=== PATIENT | male | born 1955 | race Caucasian/White ===

== ENCOUNTER 2017-12-15 06:48 | Day surgery (SDC) | payer OTHER, BC ==
[2017-12-14 10:03] VITALS: BMI 36.1
--- NOTE | 2017-12-15 13:37 | ECHO ---
TRANSESOPHAGEAL ECHOCARDIOGRAM: DATE OF SERVICE: 12/15/17 PREPROCEDURE DIAGNOSIS: Mitral valve prolapse. DETAILS: The anesthesia department provided anesthesia for the patient. Please see their notes for details. After adequate sedation was achieved, the transesophageal probe was inserted into the patient's mouth and into the esophagus with no issues. Multiplanar views were then obtained. FINDINGS: Left ventricle is normal size with normal systolic function. Ejection fraction estimated at 55-60%. Left atrium mildly dilated. Right atrium is normal size. Right ventricle is normal size with normal systolic function. Aortic root is normal size. No aneurysmal dilatations or dissections. Interatrial septum appears to be intact by color Doppler. Aortic valve has three cusps. No stenosis or regurgitation. Mitral valve has mild mitral valve prolapse of the posterior mitral leaflet. There is mild to moderat e mitral regurgitation with anteriorly directed jet. No stenosis. Tricuspid valve is structurally normal. There is mild TR. Pulmonary valve is structurally normal. Left atrial appendage is widely patent with no evidence of mass or thrombus. Thoracic aorta has grade III/V atherosclerotic disease. CONCLUSIONS: 1. Normal systolic function, EF estimated 55-60%. 2. Mild left atrial enlargement. 3. Mild TR. 4. Mild mitral valve prolapse of the posterior mitral leaflet with mild to moderate mitral regurgita tion. 5. Grade III/V atherosclerotic disease of the thoracic aorta.
[2017-12-15] MEDS ORDERED: PROPOFOL 200 MG/20 ML VIAL ONE (13:42)
[2017-12-15] MEDS ORDERED: Lidocaine 1% PF 5 ML VIAL ONE (13:42)
== END 2017-12-15 10:16 | disposition home or self-care (01) ==
LOC: CCL 06:48
PROVIDERS: ATTEND Internal Medicine Cardiovascular Disease
PROC: B24BZZ4 Ultrasonography of Heart with Aorta, Transesophageal (ICD-10-PCS; principal; 2017-12-15)
DX: I34.1 Nonrheumatic mitral (valve) prolapse (principal); I34.0 Nonrheumatic mitral (valve) insufficiency; I70.0 Atherosclerosis of aorta; E78.5 Hyperlipidemia, unspecified; I10 Essential (primary) hypertension; K21.9 Gastro-esophageal reflux disease without esophagitis; M10.9 Gout, unspecified; F17.210 Nicotine dependence, cigarettes, uncomplicated; Z88.8 Allergy status to other drugs, medicaments and biological substances; Z79.82 Long term (current) use of aspirin; Z79.899 Other long term (current) drug therapy
CPT/HCPCS: 93312

== ENCOUNTER 2018-05-10 12:27 | Outpatient (CLI) | payer OTHER, BC ==
[2018-05-10 13:12] LABS: Estimated GFR-MDRD - POC Greater than 90
--- NOTE | 2018-05-10 16:18 | CT ---
PRE AND POST CONTRAST ENHANCED CT IMAGES OF THE ABDOMEN AND PELVIS: History: Hematuria for two months. Technique: Pre and post contrast enhanced CT images of the abdomen and pelvis obtained. FINDINGS: Images demonstrate the lung bases to be unremarkable. No evidence of free intraperitoneal air is seen. The liver and spleen are unremarkable. The gallbladder is within normal limits. The pancreas is unrem arkable. Adrenal glands are unremarkable. The kidneys demonstrate no evidence of masses or lesions. No evidenc e of renal calculi seen. Atherosclerotic calcifications are seen in the abdominal aorta. No evidence of periaortic lymphadenopathy is seen. A normal appendix is seen. No dilated loops of small bowel is seen. Descending colonic diverticulosis is present without evidence of diverticulitis. The gastric antrum d emonstrates an area of thickening seen on all three phases of the CT including pre contrast, early ve nous, and late venous phases. This may represent gastric antral pathology. Correlate with direct visu alization. The ureters are unremarkable. The abdominal aorta and iliac arteries demonstrate extensive calcificat ions. The urinary bladder demonstrates a subtle area of asymmetric mucosal thickening along the posterior a spect of the bladder wall. This may represent a mucosal based lesion. Correlate with direct visualiza tion. IMPRESSION: 1. Possible posterior left bladder area of mucosal thickening. 2. Area of increased density in the gastric antrum, correlate with direct visualization. POS: KASSY
== END 2018-05-10 12:28 | disposition home or self-care (01) ==
LOC: BICCT 12:27
PROVIDERS: ATTEND Urology
DX: R31.9 Hematuria, unspecified (principal)
CPT/HCPCS: 74178; 82565

== ENCOUNTER 2018-09-06 10:28 | Day surgery (SDC) | payer OTHER ==
[2018-09-05 08:49] VITALS: BMI 36.9
[~2018-09-06 10:28] MED LIST: Fentanyl 100 MCG/2 ML VIAL ONE; Midazolam HCl 2 mg/2 ml Vial ONE
[2018-09-06] MEDS ORDERED: Fluorouracil 100 MG, Enoxaparin Sodium 25 MG, EPINEPHrine 0.3 MG in Ophthalmic Irrigati... IVPB SCH (10:40)
[2018-09-06] MEDS ORDERED: Phenylephrine 2.5% Ophth Soln 5 ML BOT ONE (10:40)
[2018-09-06] MEDS ORDERED: Cyclopentolate 1% Opth Drop 2 ML BOT ONE (10:40)
[2018-09-06] MEDS ORDERED: Famotidine/PF 20 mg/2ml Vial ONE (11:39)
[2018-09-06] MEDS ORDERED: PROVENTIL INHALER 6.7 G (200 INHALATIONS) ONE (15:58)
[2018-09-06] MEDS ORDERED: Maxitrol 0.1% Opth Oint 3.5 GM TUBE ONE (15:58)
[2018-09-06] MEDS ORDERED: Lidocaine 4% PF 5 ML AMP ONE (15:58)
[2018-09-06] MEDS ORDERED: Lidocaine 1% PF 5 ML VIAL ONE ×2 (15:58)
[2018-09-06] MEDS ORDERED: Triamcinolone 40 MG/ML VIAL ONE (15:58)
[2018-09-06] MEDS ORDERED: Bupivacaine 0.75% 10 ML AMP ONE (15:58)
[2018-09-06] MEDS ORDERED: PHENYLEPHRINE-NS 100 MCG/ML 10 ML SYRINGE ONE (15:58)
[2018-09-06] MEDS ORDERED: ePHEDrine 50 MG/ML VIAL ONE (15:58)
[2018-09-06] MEDS ORDERED: CEFAZOLIN 1 GM VIAL ONE (15:58)
[2018-09-06] MEDS ORDERED: Atropine Sulfate 1% Ophth Ointment 3.5 gm Tube ONE (15:58)
[2018-09-06] MEDS ORDERED: Glycopyrrolate 0.2 MG/ML 5 ML SYRINGE ONE (15:58)
[2018-09-06] MEDS ORDERED: Ondansetron PF 4 MG/2 ML Vial ONE (15:58)
[2018-09-06] MEDS ORDERED: PROPOFOL 200 MG/20 ML VIAL ONE (15:58)
--- NOTE | 2018-09-06 21:39 | OP ---
DATE OF PROCEDURE: 09/06/2018 PREOPERATIVE DIAGNOSIS: Rhegmatogenous retinal detachment, right eye. POSTOPERATIVE DIAGNOSIS: Rhegmatogenous retinal detachment, right eye. PROCEDURE PERFORMED: Pars plana vitrectomy, complex retinal detachment, right eye. ANESTHESIA: General endotracheal anesthesia. DESCRIPTION OF PROCEDURE: The patient was identified in the preoperative holding area. Appropriate informed consent for the planned surgical procedure on the right eye had been obtained. The patient was transported to the operative suite, where general endotracheal anesthesia was initiated. A retrobulbar block was placed. The patient was prepped and draped in usual sterile manner for ophthalmic surgery on the right eye. Lid speculum placed in the right eye. A 25-gauge trocar was placed through the conjunctiva and sclera superotemporally, inferotemporally, and supranasally. Infusion line was placed inferotemporally. Light pipe vitreous cutter was inserted into the eye. Core vitrectomy was performed. Attention was turned to the inferior temporal retinal break where there was a fibrotic scar with vitreous traction and a retinal break. A 360 scleral buckle was placed to the #42 band and 3083 sleeve. Buckle was ligated end-to-end in the supratemporal quadrant and fixated to the eye with sutures in the oblique quadrants. Posterior drained retinotomy was created. Complete air-fluid exchange was performed with 10 minutes being left for fluid to drain posteriorly. A 360 laser was placed on the eye with special attention to the inferior temporal break; silicone oil was infused into the eye and sclerotomy was sutured closed. Retrobulbar Kenalog and retrobulbar Ancef was placed. Conjunctiva was closed with 6-0 plain gut suture. Atropine antibiotic ointment was placed and the eye was patched and shielded. The patient was taken to recovery unit in good condition, having suffered no immediate perioperative complications. The patient was advised to keep the patch and shield on, left side down. Followup in the morning with Dr. Odonnell. Job ID: [id number]
== END 2018-09-06 14:59 | disposition home or self-care (01) ==
LOC: SDC 10:28
PROVIDERS: ATTEND Ophthalmology Retina Specialist
PROC: 08T43ZZ Resection of Right Vitreous, Percutaneous Approach (ICD-10-PCS; principal; 2018-09-06)
DX: H33.011 Retinal detachment with single break, right eye (principal); K21.9 Gastro-esophageal reflux disease without esophagitis; M10.9 Gout, unspecified; F17.210 Nicotine dependence, cigarettes, uncomplicated; E78.5 Hyperlipidemia, unspecified; I10 Essential (primary) hypertension; Z79.82 Long term (current) use of aspirin; Z79.899 Other long term (current) drug therapy; Z88.8 Allergy status to other drugs, medicaments and biological substances
CPT/HCPCS: C1814; J0171; J0690; J1650; J2001; J2250; J2405; J2704; J3010; J3301; J3490; J9190; S0028

== ENCOUNTER 2018-12-20 08:30 | Day surgery (SDC) | payer OTHER ==
[2018-12-19 09:18] VITALS: BMI 34.0
[~2018-12-20 08:30] MED LIST changes: +Cyclopentolate 1% Opth Drop 2 ML BOT R EYE SCH; -Fentanyl 100 MCG/2 ML VIAL ONE; +Fluorouracil 100 MG, Enoxaparin Sodium 25 MG, EPINEPHrine 0.3 MG in Ophthalmic Irrigati... IRR SCH; -Midazolam HCl 2 mg/2 ml Vial ONE; +Phenylephrine 2.5% Ophth Soln 5 ML BOT R EYE SCH
[2018-12-20] MEDS ORDERED: Phenylephrine 2.5% Ophth Soln 5 ML BOT ONE (09:47)
[2018-12-20] MEDS ORDERED: Cyclopentolate 1% Opth Drop 2 ML BOT ONE (09:47)
[2018-12-20] MEDS ORDERED: PROPOFOL 20 ML ONE (10:26)
--- NOTE | 2018-12-20 19:09 | OP ---
DATE OF PROCEDURE: 12/20/2018 PREOPERATIVE DIAGNOSIS: Vitreous opacification, epiretinal membrane, right eye. POSTOPERATIVE DIAGNOSIS: Vitreous opacification, epiretinal membrane, right eye. PROCEDURE PERFORMED: Pars plana vitrectomy with membrane peel, right eye. ANESTHESIA: Local with monitored anesthesia care. DESCRIPTION OF PROCEDURE: The patient was identified in the preoperative holding area. Appropriate informed consent for the planned surgical procedure on the right eye was obtained. The patient was transported to the operative suite, where appropriate cardiopulmonary monitoring was established. Local anesthesia was obtained using retrobulbar modified Van Lint lid block using 50:50 mixture of 4% lidocaine and 0.75% bupivacaine. The patient was prepped and draped in usual sterile manner for ophthalmic surgery on the right eye. Lid speculum was placed in the right eye. A 25-gauge trocar was placed through the conjunctiva and sclera superotemporally, inferotemporally, and supranasally. 20-gauge sclerotomy was created superotemporally and viscous fluid removal device was inserted to the eye and silicone oil was removed. Attention was turned to the posterior pole. Epiretinal membrane inferior to the nerve was identified. This was elevated using membrane pick and peeled across the macula using end gripping forceps. Peripheral retina looks detached. No holes, breaks, or tears. Supratemporal sclerotomy and all other sclerotomies were suture closed. Retrobulbar Kenalog and subconjunctival Ancef were placed. Antibiotic ointment was placed. The eye was patched and shielded. The patient was taken to the postoperative recovery unit in good condition, having suffered no immediate perioperative complications. The patient was instructed to keep patch and shield on, avoid lifting or bending. Followup appointment with Dr. Odonnell. Job ID: [id number]
== END 2018-12-20 12:20 | disposition home or self-care (01) ==
LOC: SDC 08:30
PROVIDERS: ATTEND Ophthalmology Retina Specialist
PROC: 08NE3ZZ Release Right Retina, Percutaneous Approach (ICD-10-PCS; principal; 2018-12-20)
PROC: 08T43ZZ Resection of Right Vitreous, Percutaneous Approach (ICD-10-PCS; principal; 2018-12-20)
DX: H35.371 Puckering of macula, right eye (principal); H43.391 Other vitreous opacities, right eye; Z88.8 Allergy status to other drugs, medicaments and biological substances
CPT/HCPCS: J0171; J1650; J2704; J9190

== ENCOUNTER → 2019-03-28 | Day surgery (SDC) | payer OTHER ==
[2019-03-27 12:02] VITALS: BMI 33.6
[~2019-03-28] MED LIST changes: -Cyclopentolate 1% Opth Drop 2 ML BOT R EYE SCH; -Fluorouracil 100 MG, Enoxaparin Sodium 25 MG, EPINEPHrine 0.3 MG in Ophthalmic Irrigati... IRR SCH; +PROPOFOL 20 ML ONE; -Phenylephrine 2.5% Ophth Soln 5 ML BOT R EYE SCH
[2019-03-28 06:30] LABS: #Basophils 0.1 thou/uL (0.0-0.2); #Eosinphils 0.3 thou/uL (0.0-0.7); #Lymphocytes 2.1 thou/uL (1.20-3.40); #Monocytes 0.6 thou/uL (0.11-0.59); #Neutrophils 5.3 thou/uL (1.40-6.50); %Basophils 0.7 % (0.0-1.0); %Lymphocytes 24.7 % (21.0-51.0); %Monocytes 6.6 % (0.0-10.0); %Neutrophils 63.9 % (42.0-75.0); Hemoglobin 15.6 g/dL (14.0-18.0); Mean Corpuscular HGB CONC 33.7 g/dL (32.0-36.0); Mean Corpuscular Hemoglobin 32.6 pg (27.0-31.0); Mean Corpuscular Volume 96.8 fL (78.0-98.0); Mean Platelet Volume 8.3 fL (7.4-10.4); Platelet Count 148 thou/uL (130-400); RBC Distribution Width 12.7 % (11.5-14.5); White Blood Cell (WBC) Count 8.4 thou/uL (4.8-10.8)
[2019-03-28 06:54] LABS: ALT (SGPT) 15 U/L (8-55); AST (SGOT) 19 U/L (5-34); Albumin 4.6 g/dL (3.4-4.8); Alkaline Phosphatase 76 U/L (40-150); Anion Gap 11 mmol/L (10-20); BUN (Urea Nitrogen) 20 mg/dL (8.4-25.7); Bilirubin, Total 0.7 mg/dL (0.2-1.2); Calc. Creatinine Clearance 130 mL/min (70-130); Calcium 9.8 mg/dL (7.8-10.44); Carbon Dioxide 24 mmol/L (23-31); Cardiac Risk 4.6 (Less than 4.5); Chloride 107 mmol/L (98-107); Cholesterol 167 mg/dl (< 200 Desired); Estimated GFR-MDRD 90; Globulin 2.4 g/dL (2.4-3.5); Glucose 104 mg/dL (80-115); HDL Cholesterol 36 mg/dL (>60 Neg Risk); LDL Cholesterol, Calculated 100 mg/dL; Potassium 3.9 mmol/L (3.5-5.1); Sodium 138 mmol/L (136-145); Triglycerides 155 mg/dL (Less than 150)
--- NOTE | 2019-03-28 19:14 | ECHO ---
DATE OF SERVICE: 03/28/19 PREPROCEDURE DIAGNOSIS: MVP and MR. The Anesthesiology department provided with sedation for the patient. Please see their notes for det ails. After adequate sedation was achieved, transesophageal probe was inserted into the mouth and into the esophagus. Multiplanar views were obtained. Left ventricle is normal size, normal wall thickness. Systolic function appears to be normal. Estima mia EF at 60%. Left atrium is mildly dilated. Left atrial appendage is large with normal velocities. No mass or thrombus. Right atrium is normal sized. The interatrial septum appears to be intact by color Doppler and agitated saline study. The right ventricle is normal size with normal systolic function. The aortic root is sclerotic but opens well. No stenosis or regurgitation. Mitral valve has the P3 segment severely prolapsing into the left atrium with severe mitral regurgita tion with Coanda effect. Tricuspid valve is structurally normal. There is mild TR. No stenosis. Pulmonary valve is structurally normal. No stenosis or regurgitation. Grade II/V atherosclerotic disease of the thoracic aorta. CONCLUSIONS: 1. Normal systolic function, EF at 60%. 2. Aortic valve sclerosis. 3. Mild left atrial enlargement. 4. Negative agitated saline study for interatrial shunt. 5. Mild TR. 6. Mitral valve prolapse of the P3 segment of the posterior mitral valve leaflet with severe mitral regurgitation with Coanda effect. Repair versus replacement is recommended.
== END ==
LOC: CCL 05:50
PROVIDERS: ATTEND Internal Medicine Cardiovascular Disease
PROC: B24BZZ4 Ultrasonography of Heart with Aorta, Transesophageal (ICD-10-PCS; principal; 2019-03-28)
DX: I08.2 Rheumatic disorders of both aortic and tricuspid valves (principal); F17.210 Nicotine dependence, cigarettes, uncomplicated; E66.9 Obesity, unspecified; Z68.33 Body mass index [BMI] 33.0-33.9, adult; Z79.82 Long term (current) use of aspirin; Z79.899 Other long term (current) drug therapy; Z88.8 Allergy status to other drugs, medicaments and biological substances
CPT/HCPCS: 80053; 80061; 85025; 93312; J2704

== ENCOUNTER 2019-04-15 09:56 | Outpatient (CLI) | payer OTHER ==
--- NOTE | 2019-04-15 11:04 | CT ---
EXAM: CT Chest WO Con PROVIDED CLINICAL HISTORY: Mitral valve insufficiency COMPARISON: None FINDINGS: Vascular calcification is noted including coronary calcium. Coronary stent material is also noted. Th e heart, pericardium and great vessels are suboptimally evaluated in the absence of IV contrast material. No evidence for thoracic lymph node enlargement with limitations due to lack of IV contrast. The lungs are free of significant opacity. The airway appears patent and of normal caliber. The osseous structures demonstrate no concerning lytic or blastic lesions. Deformity of the right lat eral seventh rib and associated rounded lucency presumably reflect sequela of prior, healed fracture. The visualized portions of the upper abdomen demonstrate no evidence for an acute process. IMPRESSION: No evidence for an acute process with limitations as above. Chronic findings as above.
== END 2019-04-15 09:57 | disposition home or self-care (01) ==
LOC: BICCT 09:56
PROVIDERS: ATTEND Internal Medicine Cardiovascular Disease
DX: I34.0 Nonrheumatic mitral (valve) insufficiency (principal)
CPT/HCPCS: 71250

== ENCOUNTER 2019-06-06 08:51 | Observation (INO) | payer OTHER ==
[2019-06-06] MEDS ORDERED: Nitroglycerin 0.4 MG TAB 1 EACH ONE (09:54)
[2019-06-06] MEDS ORDERED: Acetaminophen 500 MG TAB ONE (09:56)
[2019-06-06 10:25] LABS: CKMB 3.1 ng/mL (0-6.6)
[2019-06-06 10:55] VITALS: BMI 35.4
[2019-06-06] MEDS ORDERED: HYDROcodone/Acetaminophen 5/325 mg Tablet PO PRN ×2 (11:04)
[2019-06-06] MEDS ORDERED: Ondansetron ODT 4 MG TAB PO PRN (11:05)
[2019-06-06] MEDS ORDERED: Acetaminophen 325 MG TAB PO PRN (11:05)
[2019-06-06] MEDS ORDERED: Ondansetron PF 4 MG/2 ML Vial IVP PRN (11:05)
[2019-06-06 13:12] LABS: Troponin I 0.095 ng/mL (< 0.028)
--- NOTE | 2019-06-06 18:07 | CON ---
DATE OF CONSULTATION: 06/06/2019 REASON FOR CONSULTATION: Chest pain. PRIMARY HARDSCAPE FOREMAN: Lb Castro MD. HISTORY OF PRESENT ILLNESS: Mr. Cool is a pleasant 64-year-old white gentleman, who comes to the hospital for chest pain. He had a mitral valve repair with minimally invasive approach in [place] a few weeks back. He was doing well. I saw him in the office last week, he was doing very well with no major discomfort. He states that he woke up this morning at 4 a.m. and was having upper chest discomfort, which he has never had in the past. It just kept getting worse and an hour later, he decided to wake up his , who brought him to the ER. He has been evaluated with a CT of the chest with contrast and everything has been stable with no major issue. Currently, he is pain free. He states that by the time he was getting in the ER, the pain was already abating and he received a dose of morphine, which completely made the pain go away and has not returned since. On my evaluation, he is pain free. PAST MEDICAL HISTORY: 1. Mitral valve prolapse, status post mitral valve repair. 2. Hypertension. 3. Hyperlipidemia. 4. Mild coronary artery disease on pre-surgical catheterization with a 40% LAD lesion. SURGICAL HISTORY: 1. Cataract surgery in earlier this year. 2. Detached retina surgery in the past. 3. Mitral valve repair just a month ago. FAMILY HISTORY: Noncontributory. REVIEW OF SYSTEMS: A 12-point review of systems was done and was all negative unless stated in the history of present illness. OUTPATIENT MEDICATIONS: Include; 1. Melatonin. 2. Lisinopril 2.5 mg a day. 3. Eliquis 2.5 mg b.i.d. 4. Allopurinol one tablet a day. 5. Vitamin D3. 6. Aspirin 81 mg a day. 7. Vitamin B complex. ALLERGIES: INTOLERANT TO STATINS. PHYSICAL EXAMINATION: VITAL SIGNS: Temperature 98.8, pulse 99, respiratory rate 20, saturating 94% on room air, blood pressure 117/63. GENERAL: Awake, alert, and oriented x3. No distress. HEENT: Normocephalic and atraumatic. NECK: Supple. LUNGS: Clear. CARDIOVASCULAR: S1 and S2. No S3 or S4. There is a grade 2/6 holosystolic murmur at the apex, unchanged. ABDOMEN: Soft. Positive bowel sounds. EXTREMITIES: No edema. SKIN: Warm and dry. LABORATORY DATA: Laboratory work was reviewed. CK-MB was normal. Troponin was in the indeterminate range of 0.07 and a repeat at 0.09. White count of 11, hemoglobin of 12, hematocrit 38, and platelet count 210. Chemistries were unremarkable. BNP was 264. CT of the chest showed no evidence of pulmonary embolism, no pneumothorax. There is an 11 mm peripheral right middle lobe lung nodule versus scar. ASSESSMENT: 1. Chest pain. Atypical. 2. Recent mitral valve repair with a minimally invasive approach. PLAN: So far, he is ruled out for an acute coronary syndrome. He has mild coronary artery disease and his troponins are not elevated. His EKG is also unchanged. We will plan on doing an echocardiogram. If this is unremarkable and the valve looks normal functioning, we will plan on sending him home if his pain does not recur. Thank you for letting us participate in the care of your patient. We will follow. Job ID: [id number]
[2019-06-06] MEDS ORDERED: Nitroglycerin 0.4 MG TAB (25 Tab Bottle) SL PRN (19:00)
[2019-06-06] MEDS ORDERED: Morphine 10 MG/ML VIAL SLOW IVP PRN (19:01)
--- NOTE | 2019-06-06 19:35 | RAD ---
EXAM: Chest 2 views: HISTORY: Chest pain mitral valve replacement COMPARISON: 06/06/2019 FINDINGS: Implantable device overlies the mid anterior chest. Evidence for mitral valve replacement. Scattered linear parenchymal changes are noted in the right midlung zone and both infrahilar regions having more the appearance of some subsegmental atelectasis. Heart size:Upper range of normal Lungs:No confluent pneumonia. Atherosclerotic changes of the aorta. No confluent pneumonia, overt edema, pleural effusion, pneumothorax, or other significant acute proce ss. IMPRESSION: Stable bilateral linear parenchymal changes from 06/06/2019. Atherosclerosis of the aorta. No new process.
[2019-06-06] MEDS: Melatonin 3 MG TAB PO SCH (21:20)
[2019-06-06] MEDS: Apixaban 2.5 MG TAB PO SCH (21:20)
--- NOTE | 2019-06-07 01:48 | HP ---
CHIEF COMPLAINT ON ADMISSION: Chest pain. HISTORY OF PRESENT ILLNESS: The patient is a 64-year-old male, who awoke suddenly about 3 a.m. after coming back from the bathroom to have severe substernal intense chest pain. It did not go away. After several minutes, he told his , who brought him to the emergency room in [place]. There, they gave him some aspirin and some morphine. They did not try any nitroglycerin. The patient describes the pain as substernal, very intense fills the whole top part of his chest like a sharp pressure, was not short-winded or diaphoretic until after he gotten his morphine. He did not have radiation of pain, but after the pain was relieved, he had soreness in his right shoulder blade area. The pain did not cause him to be diaphoretic or nauseated. He had his mitral valve replaced at [facility] in [place] by Dr. Winn about one month ago. There have been no complications since. He still has residual bruising from that surgery. His other risk factors for coronary artery disease include his history of smoking, his history of alcohol abuse, his history of coronary artery disease and congestive heart failure, his history of hyperlipidemia and hypertension. The patient is admitted because one of his troponins are elevated. He has seen Dr. Castro in the past and further workup is anticipated. PAST MEDICAL HISTORY: As mentioned above, significant for, 1. Mitral valve replacement. 2. Coronary artery disease. 3. Congestive heart failure. 4. Hyperlipidemia. 5. Hypertension. 6. Tobacco abuse. 7. Alcohol abuse. 8. Chronic insomnia. 9. Hyperuricemia. PAST SURGICAL HISTORY: Includes most recently mitral valve replacement at [facility] in [place]. He has also had right shoulder surgery, left shoulder surgery, spinal surgery in the lumbar area. He has had arthroscopy to his knees and a hernia repair. He has no previous psychiatric history. SOCIAL HISTORY: As mentioned previously, he is . Previous smoker, quit smoking a year ago and has recently tried to quit drinking in April, but admits to having a pint of bourbon the night prior to coming to the hospital. The day prior, he had a fried catfish as well. ALLERGIES: TO STATINS. CURRENT MEDICATIONS: Include, 1. Aspirin 81 mg daily. 2. Eliquis 2.5 mg daily. 3. Lisinopril 2.5 mg a day. 4. Potassium chloride 20 mEq a day. 5. Bumex 0.5 mg daily. 6. He also takes melatonin at bedtime. 7. Allopurinol 100 mg daily. REVIEW OF SYSTEMS: For this hospitalization, CONSTITUTIONAL: Denies fever, chills, or malaise. HEENT: Denies drainage or sores in ears, eyes, nose, or throat. CHEST: Denies coughing or dyspnea. CARDIOVASCULAR: He is here for chest pain, but denies palpitations. GI: Denies nausea, vomiting, or diarrhea. : Denies dysuria or blood in urine or stool. MUSCULOSKELETAL: Denies any significantly new aches or pains in any major muscles or joints. SKIN: No new rashes or lesions. NEUROLOGIC: Denies headaches, seizures, or trouble with mentation. ENDOCRINE: Denies any new areas of edema or hyperthermia. HEMOLYTIC/LYMPH: Denies any new bruising or swelling. PSYCHIATRIC: Denies any depression, trouble with mentation, or hallucinations. PHYSICAL EXAMINATION: At the time of admission, VITAL SIGNS: Blood pressure is 136/84, pulse 97, respirations 18, temperature 98.1. Pain scale 3/10 substernal. Room air O2 saturation 97%. GENERAL: This is an obese male, alert, oriented, cooperative. HEENT: Normocephalic, atraumatic. Pupils are equal, round, and reactive to light. Extraocular muscles are intact. TMs, nares, and pharynx are clear. NECK: Supple. Trachea midline. No mass. CHEST: Clear to auscultation. Nontender to palpation. HEART: Regular rate and rhythm without audible murmur. ABDOMEN: Obese without organomegaly and nontender. No appreciable mass. : Deferred. EXTREMITIES: Without clubbing, cyanosis, or edema. Normal range of motion present. Symmetric muscular tone development in upper and lower extremities is noted. SKIN: Shows postop changes along the chest wall with diffuse bruising and well healing incisions. NEUROLOGICAL: Cranial nerves are intact. Gait and cerebellar function untested. Sensory exam is intact. Mental status is clear, nonfocal. LABORATORY DATA: Lab work on admission shows WBCs at 11.8, hemoglobin 12.6, hematocrit 38, and platelets at 210. Sodium is 142, potassium 4.1, chloride 107, CO2 24, BUN 12, creatinine 0.6 with a GFR greater than 90, glucose at 104. Calcium at 9.0. Liver functions unremarkable. Troponin I 0.95. BNP is at 264. There is no chest x-ray. ASSESSMENT: 1. Chest pain. 2. Status post mitral valve replacement. 3. Multiple risk factors for coronary artery disease. PLAN: Plan will be to complete the cardiac work rule out. Dr. Castro has been asked to see the patient in consultation and in fact is already done so. An echocardiogram is planned. Should these prove negative prior to discharge, we will probably do a sonogram of his gallbladder and we will monitor his vital signs and serially re-evaluate him. Job ID: [id number]
[2019-06-07 05:22] LABS: Hemoglobin A1c 5.3 % (4.0-6.0)
[2019-06-07] MEDS: Allopurinol 100 MG TAB PO SCH (07:59)
[2019-06-07] MEDS: Lisinopril 2.5 MG TAB PO SCH (07:59)
[2019-06-07] MEDS: Aspirin 81 mg Enteric Coated Tablet PO SCH (07:59)
[2019-06-07] MEDS: Apixaban 2.5 MG TAB PO SCH ×2 (07:59→20:59)
[2019-06-07] MEDS: Acetaminophen 325 MG TAB PO SCH ×4 (09:26→20:59)
[2019-06-07 09:49] LABS: #Basophils 0.1 thou/uL (0.0-0.2); #Eosinphils 0.8 thou/uL (0.0-0.7); #Lymphocytes 2.1 thou/uL (1.20-3.40); #Monocytes 1.5 thou/uL (0.11-0.59); #Neutrophils 8.9 thou/uL (1.40-6.50); %Basophils 0.5 % (0.0-1.0); %Lymphocytes 15.8 % (21.0-51.0); %Monocytes 11.1 % (0.0-10.0); %Neutrophils 66.7 % (42.0-75.0); Hemoglobin 11.9 g/dL (14.0-18.0); Mean Corpuscular HGB CONC 32.8 g/dL (32.0-36.0); Mean Corpuscular Hemoglobin 30.2 pg (27.0-31.0); Mean Platelet Volume 8.5 fL (7.4-10.4); Platelet Count 185 thou/uL (130-400); RBC Distribution Width 12.7 % (11.5-14.5); Red Blood Cell (RBC) Count 3.96 mill/uL (4.70-6.10); White Blood Cell (WBC) Count 13.3 thou/uL (4.8-10.8)
[2019-06-07 10:09] LABS: Bilirubin Negative (Negative); Blood, Urine Negative (Negative); Clarity Clear (Clear); Glucose, Urine (Dipstick) Normal (Negative); Leukocyte Negative Leu/uL (Negative); Nitrite Negative (Negative); Protein, Urine (Dipstick) Negative (Neg-Trace); Urobilinogen Normal mg/dL (Less than 2)
--- NOTE | 2019-06-07 12:59 | PDOC.CPN ---
- Subjective Date: 06/07/19 Time: 12:55 Interval history: He is doing well. He denies any more chest pain. - Review of Systems General: denies: fever/chills, weight/appetite/sleep changes, night sweats, fatigue Respiratory: denies: cough, congestion, shortness of breath, exercise intolerance Cardiovascular: denies: chest pain, palpitation, edema, paroxysmal nocturnal dyspnea, orthopnea Gastrointestinal: denies: nausea, vomiting, diarrhea, constipation, abd pain, GI bleeding Musculoskeletal: denies: pain, tenderness, stiffness, swelling, arthritis/ arthralgias Neurological: denies: numbness, syncope, seizure, weakness - Objective Allergies/Adverse Reactions: Allergies Allergy/AdvReac Type Severity Reaction Status Date / Time [id number] Reductase Allergy Verified 03/27/19 12:02 Inhibitor Visit Medications: Current Medications Acetaminophen (Tylenol) 650 mg PO Q4H [facility] Stop: 06/08/19 05:01 Last Admin: 06/07/19 12:25 Dose: 650 mg Allopurinol (Zyloprim) 100 mg PO DAILY [facility] Last Admin: 06/07/19 07:59 Dose: 100 mg Apixaban (Eliquis) 2.5 mg PO BID [facility] Last Admin: 06/07/19 07:59 Dose: 2.5 mg Aspirin (Ecotrin) 81 mg PO DAILY [facility] Last Admin: 06/07/19 07:59 Dose: 81 mg Lisinopril (Zestril) 2.5 mg PO DAILY [facility] Last Admin: 06/07/19 07:59 Dose: 2.5 mg Melatonin (Melatonin) 9 mg PO HS [facility] Last Admin: 06/06/19 21:20 Dose: 9 mg Morphine Sulfate (Morphine) 5 mg SLOW IVP Q2H PRN PRN Reason: CHEST PAIN-2ND LINE Last Admin: 06/06/19 21:31 Dose: 5 mg Nitroglycerin (Nitrostat) 0.4 mg SL Q5MIN PRN PRN Reason: Chest Pain Pantoprazole Sodium (Protonix) 40 mg PO DAILY [facility] Last Admin: 06/07/19 07:59 Dose: 40 mg Sodium Chloride (Flush - Normal Saline) 10 ml IVF Q12HR [facility] Last Admin: 06/07/19 07:59 Dose: 10 ml Sodium Chloride (Flush - Normal Saline) 10 ml IVF PRN PRN PRN Reason: Saline Flush Sodium Chloride (Flush - Normal Saline) 10 ml IVF Q12HR [facility]I Last Admin: 06/07/19 07:59 Dose: Not Given Sodium Chloride (Flush - Normal Saline) 10 ml IVF PRN PRN PRN Reason: Saline Flush Vital Signs & Weight: Vital Signs Temp Pulse Resp BP Pulse Ox 06/07/19 12:00 98.0 F 92 20 123/65 94 L 06/07/19 07:59 95 06/07/19 07:52 98.4 F 93 20 119/64 92 L 06/07/19 04:00 98.5 F 95 16 132/69 95 Weight 240 lb - Physical Exam General: alert & oriented x3 HEENT: mucus membranes moist Neck: supple neck Cardiac: regular rate and rhythm, systolic murmur Lungs: clear to auscultation, no wheeze, rales, rhonchi Neuro: grossly intact Abdomen: active bowel sounds, soft, non-tender Extremities: 1+ LE edema Skin: clear Musculoskeletal: no pain - Labs Result Diagrams: 06/07/19 08:47 Troponin/CKMB CK-MB (CK-2) 3.1 ng/mL (0-6.6) 06/06/19 09:34 Troponin I 0.095 ng/mL (< 0.028) H 06/06/19 12:37 - Telemetry Sinus rhythms and dysrhythmias: sinus rhythm - Assessment/Plan Assessment/Plan: 1. Chest pain 2. Mild CAD 3. S/P MV repair, ring annuloplasty 4. Mildly reduced EF post op 45-50% PLAN: - No obvious source of chest pain on echo. No ACS, mild CAD on recent LHC before surgery. - Mild to moderate MR with EF at 45-50% with is an expected drop after Severe MR has been repaired. - From cardiac perspective he may be discharged home at any time. - Follow up in the office as scheduled in 1 -2 months.
--- NOTE | 2019-06-07 15:40 | ULT ---
EXAM: US Gallbladder RUQ CLINICAL HISTORY: Evaluate for inflammatory change.. COMPARISON: None. FINDINGS: Pancreas: Obscured by bowel gas Liver:Slightly coarsened hepatic parenchymal echotexture. No hepatic masses or intrahepatic biliary d ilatation. The contour of the hepatic margin is maintained. Right hepatic lobe measures 16.9 cm IVC and aorta: Visualized IVC and aorta are unremarkable Gallbladder: No sonographic evidence of cholelithiasis, gallbladder wall thickening or pericholecysti c fluid. Streeter's sign:Not commented upon Portal Vein: Patent. Appropriate directional flow Bile ducts: Common bile duct diameter 0.4 cm Right kidney: No hydronephrosis. Right kidney measures 5.1 x 13.6 x 6.7 cm in length. IMPRESSION: 1. Slightly coarsened hepatic parenchymal echotexture. Correlate clinically for hepatic steatosis or hepatocellular disease.
[2019-06-07 19:06] LABS: Hemoglobin 12.4 g/dL (14.0-18.0); Platelet Count 190 thou/uL (130-400)
[2019-06-07 19:25] LABS: Calc. Creatinine Clearance 162 mL/min (70-130); Estimated GFR-MDRD Greater than 90
[2019-06-07] MEDS: Melatonin 3 MG TAB PO SCH (20:59)
[2019-06-08] MEDS: Acetaminophen 325 MG TAB PO SCH ×2 (01:41→05:12)
[2019-06-08 06:04] LABS: #Basophils 0.1 thou/uL (0.0-0.2); #Eosinphils 0.8 thou/uL (0.0-0.7); #Lymphocytes 2.1 thou/uL (1.20-3.40); #Monocytes 1.4 thou/uL (0.11-0.59); #Neutrophils 9.2 thou/uL (1.40-6.50); %Basophils 0.4 % (0.0-1.0); %Eosinophils 5.7 % (0.0-10.0); %Lymphocytes 15.8 % (21.0-51.0); %Monocytes 10.2 % (0.0-10.0); %Neutrophils 67.9 % (42.0-75.0); Hemoglobin 11.8 g/dL (14.0-18.0); Mean Corpuscular HGB CONC 33.5 g/dL (32.0-36.0); Mean Corpuscular Hemoglobin 30.6 pg (27.0-31.0); Mean Corpuscular Volume 91.3 fL (78.0-98.0); Mean Platelet Volume 8.6 fL (7.4-10.4); Platelet Count 180 thou/uL (130-400); RBC Distribution Width 12.6 % (11.5-14.5); Red Blood Cell (RBC) Count 3.85 mill/uL (4.70-6.10); White Blood Cell (WBC) Count 13.5 thou/uL (4.8-10.8)
[2019-06-08 09:08] VITALS: BP 127/64; TEMP 98.8
[2019-06-08] MEDS: Allopurinol 100 MG TAB PO SCH (09:09)
[2019-06-08] MEDS: Lisinopril 2.5 MG TAB PO SCH (09:09)
[2019-06-08] MEDS: Aspirin 81 mg Enteric Coated Tablet PO SCH (09:09)
[2019-06-08] MEDS: Apixaban 2.5 MG TAB PO SCH (09:24)
== END 2019-06-08 09:45 | disposition home or self-care (01) ==
LOC: ERS 08:51 → 2SW 10:53
PROVIDERS: ADMIT Specialist; ATTEND Specialist
DX: R07.2 Precordial pain (principal); I25.10 Atherosclerotic heart disease of native coronary artery without angina pectoris; F10.11 Alcohol abuse, in remission; I11.0 Hypertensive heart disease with heart failure; I50.9 Heart failure, unspecified; E78.5 Hyperlipidemia, unspecified; G47.00 Insomnia, unspecified; Z87.891 Personal history of nicotine dependence; Z79.01 Long term (current) use of anticoagulants; Z79.82 Long term (current) use of aspirin; Z79.899 Other long term (current) drug therapy; Z88.8 Allergy status to other drugs, medicaments and biological substances; Z95.2 Presence of prosthetic heart valve
CPT/HCPCS: 36415; 71046; 76705; 80061; 81003; 82553; 82565; 83036; 85025; 93005; 93306; 96374; G0378; J2270

== ENCOUNTER 2020-05-28 11:44 | Outpatient (CLI) | payer OTHER ==
--- NOTE | 2020-05-29 07:20 | RAD ---
XR Shoulder Rt 3 View STANDARD HISTORY: Left shoulder pain FINDINGS: No fracture or dislocation is identified. There are degenerative changes in the glenohumeral and AC j oints. There is a calcified density in the rotator cuff suspicious for calcific tendinosis.
== END 2020-05-28 11:45 | disposition home or self-care (01) ==
LOC: BICRAD 11:44
PROVIDERS: ATTEND Specialist
DX: M25.511 Pain in right shoulder (principal)

== ENCOUNTER 2020-06-29 10:19 | Outpatient (CLI) | payer OTHER ==
--- NOTE | 2020-06-29 11:43 | MRI ---
MR of the right shoulder without contrast INDICATION: Right shoulder pain. Limited and painful range of motion TECHNIQUE: Sagittal T1, axial and coronal PD fat sat, sagittal and coronal T2 fat sat images were obt ained of the right shoulder. COMPARISON: Right shoulder radiograph dated May 28, 2020 FINDINGS: Motion artifact limits image detail. Rotator cuff: There is moderate tendinosis of the supraspinatus and mild tendinosis of infraspinatus tendon without evidence of a full-thickness tear. There is moderate tendinosis of the subscapularis. There is a focus of diminished T1-T2 signal seen within the substance of the anterior supraspinatus measuring 1.2 x 0.7 cm in its greatest AP and mediolateral dimensions. This corresponds to a calcific focus on the comparison radiograph and is consistent with a focus of calcif ic tendinosis. Numerous subchondral cystlike abnormality is seen involving the greater tuberosity, likely degenerative in nature. Glenohumeral joint: There is a [id number] glenohumeral osteoarthrosis with a moderate-sized ost eophyte projecting off the inferior aspect of the humeral head. There are areas of full-thickness thinning involving the central and anterior aspect of the glenoid articular surface. Glenoid labrum: There is some intrasubstance degenerative signal involving the posterior glenoid labr um without discrete tear. No para labral cyst is evident. Biceps tendon and biceps anchor: Intact and located. Acromion clavicular joint: There is moderate AC joint osteoarthrosis. Subacromial subdeltoid space: No appreciable fluid. Axillary region: No lymphadenopathy. Surrounding shoulder musculature: Normal. No evidence of atrophy or strain. IMPRESSION: 1. [id number] glenohumeral osteoarthrosis. 2. Calcific tendinosis of the anterior supraspinatus at the footprint. Moderate supraspinatus with mi ld infraspinatus and subscapularis tendinosis. No full-thickness rotator cuff tear demonstrated. 3. Moderate AC joint osteoarthrosis.
== END 2020-06-29 10:20 | disposition home or self-care (01) ==
LOC: BICMRI 10:19
PROVIDERS: ATTEND Specialist
DX: M25.511 Pain in right shoulder (principal); M19.011 Primary osteoarthritis, right shoulder; M67.813 Other specified disorders of tendon, right shoulder